=== PATIENT | female | born 1975 | race Caucasian/White ===

== ENCOUNTER 2023-06-25 16:05 | Emergency (ER) | payer BC, SELFPAY ==
--- NOTE | ~2023-06-25 | XR_ITS ---
EXAM: XR wrist RT 2V DATE: 06/25/2023 18:48 HISTORY: post reduction . COMPARISON: Same date at 4:32 PM. FINDINGS/IMPRESSION: Overlying cast material obscures osseous detail. Redemonstration of the comminuted, likely intra-reynold cular distal right radial fracture, with 4 mm posterior displacement, 23 degrees persistent posterior angulation, and decreased impaction. Improved alignment of the ulnar styloid fracture. Reviewed, dictated and finalized at location K. RACT ASSOCIATE
--- NOTE | ~2023-06-25 | XR_ITS ---
EXAM: XR wrist RT min 3V DATE: 06/25/2023 16:39 HISTORY: fall, injury, pain OBVIOUS DEFORMITY . COMPARISON: None available. FINDINGS: Normal mineralization. Comminuted, posteriorly angulated, mildly impacted fracture of the distal right radius, likely with intra-articular extension. Mildly comminuted and posteriorly displac ed fracture of the ulnar styloid No lytic or blastic lesion. Joint spaces are maintained. No erosion or periosteal change. Soft tissues within normal limits. IMPRESSION: Likely intra-articular, comminuted, angulated, and mildly impacted fracture of the distal right radius. Comminuted and displaced fracture of the ulnar styloid. Reviewed, dictated and finalized at location K. LITATION SPECIALIST IMPRESSION: Likely intra-articular, comminuted, angulated, and mildly impacted fracture of the distal right radius. Comminuted and displaced fracture of the u lnar styloid.
[2023-06-25 16:24] VITALS: BP 98/63; PULSE 54; RESP 16; TEMP 36.2; O2SAT 100
--- NOTE | 2023-06-25 16:49 | ED.UPPEXIN ---
HPI - Extremity Injury (Upper) General Chief Complaint: Extremity Injury, Upper <HERNANDEZ Page Last Filed: 06/28/23 01:54> Stated Complaint: fall - RIGHT wrist injury <HERNANDEZ Page Last Filed: 06/28/23 01:54> Time Seen by Provider: 06/25/23 16:24 <HERNANDEZ Page Last Filed: 06/28/23 01:54> History of Present Illness HPI narrative: 47-year-old female reports for evaluation for right wrist pain after a fall that occurred 30 minutes prior to arrival. Patient states she was rollerblading and was exiting the rink when her roller blade got caught on a rug. She fell back and landed on her tailbone and braced her fall with both of her hands extended behind her back. She is reporting pain to her right wrist with swelling. She denies hitting her head or losing consciousness. Denies neck pain, back pain, hip pain, other injuries acquired. <HERNANDEZ Page Last Filed: 06/28/23 01:54> Related Data Allergies/Adverse Reactions: Allergies Allergy/AdvReac Type Severity Reaction Status Date / Time No Known Allergies Unverified 06/25/09 06:37 <HERNANDEZ Page Last Filed: 06/28/23 01:54> Review of Systems Review of Systems: CONSTITUTIONAL: Denies fever, chills, or sweats. EYES: Denies visual changes, redness, or discharge. ENT: Denies rhinorrhea, congestion, sore throat, or otalgia. CARDIOVASCULAR: Denies chest pain, palpitations, or edema. RESPIRATORY: Denies cough or dyspnea. GASTROINTESTINAL: Denies abdominal pain, nausea, vomiting, or diarrhea. GENITOURINARY: Denies dysuria or hematuria. SKIN: Denies rash or itching. MUSCULOSKELETAL: See HPI NEUROLOGIC: Denies headache, numbness, or weakness. PSYCHIATRIC: Denies anxiety or depression. <HERNANDEZ Page Last Filed: 06/28/23 01:54> Exam Narrative: GENERAL: Well-appearing, well-nourished, and in no acute distress. HEAD: Normocephalic, atraumatic. NECK: Supple. no midline cervical spinous tenderness, step-offs or deformities. BACK: No thoracolumbar spinous tenderness, step-offs or deformities. CHEST: Clear to auscultation. No respiratory distress. HEART: Regular rate and rhythm. No murmur heard. Normal peripheral pulses. ABDOMEN: Soft, nontender, nondistended, normal active bowel sounds. EXTREMITIES: RUE: Tenderness and edema to the distal ulna and radius. Obvious dinner fork deformity. No tenderness to remainder of upper extremity including shoulder, elbow, proximal radius or ulna, fingers or hand. Full range of motion of fingers. Sensation intact throughout. Cap refill less than 2. Radial pulse 2 +. Skin is pink warm and dry. No overlying lacerations, abrasions or punctures. Compartments soft. SKIN: Warm, dry, no rash. NEURO: No focal deficits. Alert and oriented x3 <Tigist Abraham PA-C - Last Filed: 06/28/23 01:54> Course LOOSE HAND PACKER/PA Physician Supervision For this patient encounter, I reviewed the LOOSE HAND PACKER or PA documentation, treatment plan, and medical decision making; and I had [id number] time with this patient. <Tera Farmer MD - Last Filed: 07/09/23 07:28> Vital Signs Vital signs: Vital Signs Temperature 97.2 F L 06/25/23 16:24 Pulse Rate 54 L 06/25/23 16:24 Respiratory Rate 16 06/25/23 16:24 Blood Pressure 98/63 L 06/25/23 16:24 Pulse Oximetry 100 06/25/23 16:24 Temperature 97.2 F L 06/25/23 16:24 Pulse Rate 54 L 06/25/23 16:24 Respiratory Rate 16 06/25/23 16:24 Blood Pressure 98/63 L 06/25/23 16:24 Pulse Oximetry 100 06/25/23 16:24 <Tigist Abraham PA-C - Last Filed: 06/28/23 01:54> Vital Signs Temperature 97.2 F L 06/25/23 16:24 Pulse Rate 54 L 06/25/23 16:24 Respiratory Rate 16 06/25/23 16:24 Blood Pressure 98/63 L 06/25/23 16:24 Pulse Oximetry 100 06/25/23 16:24 Temperature 97.2 F L 06/25/23 16:24 Pulse Rate 54 L 06/25/23 16:24 Respiratory Rate 16 06/25/23 16:24 Bloo
[2023-06-25] MEDS: HYDROcodone/acetaminophen (*CRX) 5-325 MG TABLET 1 TAB PO (16:52)
[2023-06-25] MEDS: LIDOCAINE HCL 1% LOCAL INJ 10 ML VIAL INFILTRATE (19:17)
--- NOTE | 2023-06-25 19:48 | PC.NURSE ---
Pt left before receiving exit vitals.
== END 2023-06-25 19:50 | disposition home or self-care (01) ==
PROVIDERS: Emergency Provider Physician Assistant
DX: S52.571A Other intraarticular fracture of lower end of right radius, initial encounter for closed fracture (principal); S52.611A Displaced fracture of right ulna styloid process, initial encounter for closed fracture; W01.0XXA Fall on same level from slipping, tripping and stumbling without subsequent striking against object, initial encounter; Y93.51 Activity, roller skating (inline) and skateboarding
CPT/HCPCS: 25624; 73100; 73110; 99285; A4565; A9270

== ENCOUNTER 2024-08-07 16:08 | Outpatient (CLI) | payer OTHER, SELFPAY ==
--- NOTE | ~2024-08-07 | MR_ITS ---
EXAMINATION: MR lower leg RT wo con DATE: 08/07/2024 16:41 INDICATION: Medial right knee pain TECHNIQUE: Magnetic resonance imaging (MRI) of the right lower leg just from just above the right kne e through the metaphyseal region of the distal tibia was performed without intravenous contrast. Sequ ences included axial, sagittal and coronal T1-weighted FSE and fluid sensitive FSE STIR. The contrala teral left lower leg is included on the coronal images. COMPARISON: Radiographs dated 07/19/2024 FINDINGS: There is epimysial and feathery muscular edema about the right gastrocnemius muscle. There is increas ed fluid extending along the aponeurosis between the gastrocnemius muscle and the deeper soleus muscl e. No discrete tear muscular aponeurosis is appreciated. Remaining musculature is unremarkable. There is increased fluid signal and expansile lytic lesion at the head of the right fibula. On the prior r adiographs there is thinning of the surrounding cortex but no evident cortical disruption or perioste al reaction. No evident extraosseous extension of the lesion. Bone marrow signal is otherwise normal throughout with no reactive marrow edema or fracture. No periostitis. Minimal right knee joint effusi on. Small of the right Coliler's cyst. IMPRESSION: 1. Right gastrocnemius muscular and epimysial edema consistent with low-grade strain without a discre te tendon or muscle tear. 2. Fluid signal hyperintense expansile lytic lesion at the head of the right fibula with nonaggressiv e appearance on the prior radiographs which could represent a bone cyst, aneurysmal bone cyst, fibrou s dysplasia or enchondroma. Reviewed, dictated and finalized at location A. THERAPIST IMPRESSION: 1. Right gastrocnemius muscular and epimysial edema consistent with low-grade s train without a discrete tendon or muscle tear. 2. Fluid signal hyperintense expansile lytic lesion at the head of the right fi bula with nonaggressive appearance on the prior radiographs which could represe nt a bone cyst, aneurysmal bone cyst, fibrous dysplasia or enchondroma.
== END 2024-08-07 16:09 | disposition home or self-care (01) ==
LOC: MICIMG 16:10
PROVIDERS: PCP Orthopaedic Surgery; Visit Provider Orthopaedic Surgery
DX: R22.41 Localized swelling, mass and lump, right lower limb (principal); M89.561 Osteolysis, right lower leg
CPT/HCPCS: 73718

== ENCOUNTER 2024-11-20 09:26 | Outpatient (CLI) | payer OTHER, SELFPAY ==
--- NOTE | ~2024-11-20 | MR_ITS ---
MRI of the right knee Clinical history: Pain Technique: Coronal proton density and proton density-weighted images, sagittal proton-density and T2 fat-sat images, and axial proton-density fat-saturated images were acquired. COMPARISON: 08/07/2024 Findings: Anterior and posterior cruciate ligaments are intact. Medial collateral ligament and the la teral collateral ligament complex are intact. Popliteus tendon is intact. There is complex tearing of the body segment of the medial meniscus, which is largely macerated in ap pearance. Lateral meniscus is intact, without evidence of tear. Articular cartilage is well preserved in the lateral patellofemoral compartment. There is diffuse hig h-grade chondral malacia on both sides of the medial compartment. There is extensive amorphous marrow edema throughout the medial femoral condyle with probable subchondral insufficiency fracture present . There is a 2.9 x 2.3 cm T2 hyperintense lesion at the fibular head, similar to prior exam. Extensor mechanism is intact. Small joint effusion present. Minimal Collier's cyst is present. There is edematous change about involving the distal semimembranosus muscle belly, compatible with low-grade muscle strain or tear. Impression: Mild grade 2 muscle strain/tear of the distal semimembranosus muscle belly with surrounding soft tiss ue edema and fluid. Probable subchondral insufficiency fracture at the medial femoral condyle with extensive surrounding amorphous marrow edema. Complex tear of the body segment of the medial meniscus, which is largely macerated appearance. Extensive high-grade chondral malacia the medial compartment. 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 Reviewed, dictated and finalized at [facility]. Impression: Mild grade 2 muscle strain/tear of the distal semimembranosus muscle belly with surrounding soft tissue edema and fluid. Probable subchondral insufficiency fracture at the medial femoral condyle with extensive surrounding amorphous marrow edema. Complex tear of the body segment of the medial meniscus, which is largely macer ated appearance. Extensive high-grade chondral malacia the medial compartment. 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
== END 2024-11-20 09:27 | disposition home or self-care (01) ==
LOC: GOSHIMG 09:27
PROVIDERS: PCP Orthopaedic Surgery; Visit Provider Orthopaedic Surgery
DX: S83.241D Other tear of medial meniscus, current injury, right knee, subsequent encounter (principal); X58.XXXD Exposure to other specified factors, subsequent encounter
CPT/HCPCS: 73721

== ENCOUNTER 2024-12-04 01:24 | Day surgery (SDC) | payer OTHER, SELFPAY ==
[2024-11-28 12:11] VITALS: BMI 30.7
--- NOTE | 2024-11-28 12:12 | PC.NURSE ---
Report to the Outpatient Waiting Room, entrance under the green pavilion located off [facility], at time _1000_ on date _[id number]_. Planned Procedure Time: _1200_.? Time changes happen often and if your time is changed the preop area will call you the afternoon before. - You and your visitor will be asked to self-screen and do not enter if you have any COVID symptoms. Please call surgeon if you need to reschedule. - A mask is optional within the hospital at this time. Patients may have clear liquids (water, carbonated beverages, clear teas, apple juice) until 3 hours prior to surgery with a maximum of 20 ounces. - No food from midnight until time of surgery and no smoking, or chewing tobacco (or any form of nicotine). No chewing gum, candy or mints. Take only the following medications with a SIP of water on the morning of surgery: ___None____ DO NOT STOP ANY OF YOUR OTHER PRESCRIPTION MEDICATIONS PRIOR TO SURGERY EXCEPT THE FOLLOWING Hold all vitamins and supplements for 3 days per anesthesiologist. Medications to discontinue per physician Date to take last oufd__[id number]____ Please no make-up, nail bruneian, hairspray, perfume, deodorant, or body powder the day of surgery.? No jewelry (including any body piercings) or valuables the day of surgery, leave them at home.? Please take a shower or bath the night before, or the morning of, surgery with an antibacterial soap.? Wear comfortable, loose fitting clothing.? - Jewelry must be removed prior to entering the operating room.? Rings and piercings that are not removed may be cut off. - The hospital will not accept responsibility for valuables.? - Please leave all valuables, including medications, at home the day of surgery. If you are going home after surgery, a licensed dumpster driver must drive you home.? - NO public transportation without another adult if you receive anesthesia. - We recommend that an adult stay with you for 24 hours following discharge. - We also recommend that you do not drive, make important decision, drink alcoholic beverages, or take any drugs that were not prescribed by your health care provider for at least 24 hours after your discharge time. Follow any additional instructions given to you from your surgeon. Telephone instructions given to __April___and asked if any additional questions and then verbalized understanding. Patient advised to call surgeon office or pre surgery nurse liaison [phone] if any additional questions.
[2024-12-04] VITALS (8 sets, daily range): BP systolic 107–141; BP diastolic 66–98; PULSE 53–82; RESP 15–18; TEMP 36.4–37.1; O2SAT 98–100; BMI 32.1
[2024-12-04 10:14] LABS: BEDSIDEPREGUCG Negative (Negative)
[2024-12-04] MEDS: CELECOXIB 200 MG CAPSULE PO (10:25)
[2024-12-04] MEDS: ACETAMINOPHEN 500 MG TABLET 1000 MG PO (10:25)
[2024-12-04] MEDS: LACTATED RINGERS 1,000 ML 30 ML IV CONT ×2 (10:30→13:26)
--- NOTE | 2024-12-04 11:44 | WPDHPUPDATE1 ---
History and Physical Update Update Date/Time: 12/04/24 11:44 History and Physical has been reviewed, including an updated exam of the patient. There are NO changes in the patient's condition. Risks, benefits, and alternatives have been discussed and questions answered. Patient agrees to proceed with procedure.
--- NOTE | 2024-12-04 11:57 | P.PNAN_ITS ---
Anes - Initial Pre Proc Eval Procedure: Operation Date: 12/04/24 12:00 Proposed Procedures p Right Knee Arthroscopy - Cy Young MD Date/Time: 12/04/24 11:57 Surgeon: Cy Young MD Pre Op Diagnosis: right knee medial meniscus tear Patient Data Age: 49 Gender: F Height: 1.68 m Weight: 90.2 kg Last Vital Signs Temp 37.1 C 12/04/24 10:10 Pulse 61 12/04/24 10:10 Resp 16 12/04/24 10:10 BP 128/74 12/04/24 10:10 Pulse Ox 100 12/04/24 10:10 O2 Del Method Room Air 12/04/24 10:10 Allergies Allergy/AdvReac Type Severity Reaction Status Date / Time No Known Allergies Allergy Verified 12/04/24 10:08 Home Medications ?Medication ?Instructions ?Recorded ?Confirmed ?Type ibuprofen 200 mg tablet (Advil) 600 mg PO Q6H PRN pain 11/28/24 12/04/24 History multivitamin (Daily Multi-Vitamin 1 tablet PO DAILY 11/28/24 12/04/24 History tablet) Laboratory Tests 12/04/24 10:10 POC Urine HCG, Qual Negative (Negative) Patient hx anesthesia problems: none Family hx anesthesia problems: none Results Review: All pre-operative results and documents have been reviewed as part of the pre- operative evaluation. [facility] Past Medical History Medical History (Updated 12/04/24 @ 11:57 by Amado Olivares MD) Obesity Social History Social History Smoking status: Never smoker Alcohol intake: current Drinks per week: 6 Substance use type: does not use Living arrangements: with family Occupation/Education: occupation Additional occupation/education comments: [employer] Gender identity (if verbalized by the patient): Female Spiritual care concerns: No Anes - Eval Final PreProcedure Day of Procedure 12/04/24 11:57 Patient weight: obese Heart: regular rate and rhythm Lungs: clear to auscultation Airway: Mallampati scale class II Neurological: alert and oriented Last oral intake: >/= 8 hours Emergent: no Anesthetic plan: proceed Anesthesia type and monitoring: general LMA and standard monitoring Results Review: All pre-operative results and documents have been reviewed as part of the pre- operative evaluation. Informed Consent: The patient's anesthetic plan and its attendant risks and benefits were discuss ed with the patient/family/POA. Questions were solicited and answers provided to the satisfaction of the patient/family/POA.
[2024-12-04] MEDS: ceFAZolin 2 GM/D5W 50 ML 2 GM/50 ML BAG IVPB (12:24)
[2024-12-04] MEDS: BUPivacaine HCL 0.5% 10 ML AMP 30 ML INFILTRATE (12:51)
--- NOTE | 2024-12-04 13:33 | P.OP_ITS ---
Procedure Note - Detailed Date of Procedure 12/04/24 Pre-op Diagnosis right knee medial meniscus tear Post-op Diagnosis Same Procedure Performed RIGHT KNEE SCOPE Surgeon Cy Young MD Anesthesia General Description of Procedure PATIENT WAS TAKEN TO THE OPERATING ROOM. THE RIGHT LEG WAS PREPPED AND DRAPED S TERILE. TROCARS WERE PLACED IN THE USUAL FASHION. CAMERA WAS INTRODUCED. THERE WAS CHONDROMALACIA TO THE PATELLA FEMORAL JOINT. THERE WAS A LOT OF SYNOVITIS IN ALL COMPARTMENTS. SYNOVECTOMY WAS PREFORMED IN THE MEDIAL COMPARTMENT. THE MEDIAL COMPARTMENT SHOWED GRADE 2 AND 3 CHONDROMALACIA TO THE MEDIAL FEMORAL CONDYLE. A SHAVER WAS USED TO PREFORM A CHONDROPLASTY. THERE WAS A COMPLEX MEDIAL MENISCUS TEAR TO THE POSTERIOR HORN. THE TEAR WAS RESECTED WITH A BITER AND A SHAVER DOWN TO A SMOOTH BASE. THE ACL WAS INTACT. THE LATERAL MENISCUS WAS NOT TORN. THE LATERAL COMPARTMENT HAD MINIMAL CHONDROMALACIA. THERE WAS GRADE 3 CHONDROMALACIA TO THE PATELLO FEMORAL JOINT MAINLY ON THE PATELLA SURFACE. CHONDROPLASTY WAS PREFORMED. SYNOVECTOMY WAS PREFORMED IN THE SUPERIOR MEDIAL COMPARTMENT. THE WOUNDS WERE APPROXIMATED WITH 4.0 NYLON. STERILE DRESSING WAS APPLIED. PATIENT WAS EXTUBATED. Estimated Blood Loss 5 Complications No immediate complications Condition Stable Disposition PACU
[2024-12-04] MEDS: oxyCODONE HCL (*CRX) 5 MG TAB IR PO (14:28)
== END 2024-12-04 15:20 | disposition home or self-care (01) ==
PROVIDERS: Visit Provider Orthopaedic Surgery
PROC: (CPT 29870; principal; 2024-12-04 12:00)
DX: S83.231A Complex tear of medial meniscus, current injury, right knee, initial encounter (principal); M65.861 Other synovitis and tenosynovitis, right lower leg; M22.41 Chondromalacia patellae, right knee; X50.0XXA Overexertion from strenuous movement or load, initial encounter; E66.9 Obesity, unspecified; Z68.32 Body mass index [BMI] 32.0-32.9, adult
CPT/HCPCS: 29881; A9270; J0690; J1100; J2250; J2405; J2704; J3010; J7120

== ENCOUNTER 2024-12-07 01:38 | Day surgery (SDC) | payer OTHER, SELFPAY ==
[2024-11-27 15:39] VITALS: BMI 32.0
--- NOTE | 2024-12-07 07:47 | SUR.PREOP ---
Spoke with Dr. Sosa regarding patient screen. Patient was unable to void at this time. Per patient, she was just here on Monday 12/04 for procedure and it was negative then. Per Dr. Sosa, ok to cancel screen for today and use negative value from 12/04.
[2024-12-07 07:57] VITALS: BP 148/94; PULSE 82; RESP 18; TEMP 36.6; O2SAT 100; BMI 31.8
[2024-12-07] MEDS: LACTATED RINGERS 1,000 ML 150 ML IV CONT (08:00)
--- NOTE | 2024-12-07 08:03 | WPDANESEPPF ---
Anes - Initial Pre Proc Eval Procedure: Operation Date: 12/07/24 08:30 Proposed Procedures p Screening Colonoscopy - Jamey Dash MD Date/Time: 12/07/24 08:03 Surgeon: Jamey Dash MD Pre Op Diagnosis: Screening Patient Data Age: 49 Gender: F Height: 1.68 m Weight: 89.7 kg Last Vital Signs Temp 36.6 C 12/07/24 07:57 Pulse 82 12/07/24 07:57 Resp 18 12/07/24 07:57 BP 148/94 H 12/07/24 07:57 Pulse Ox 100 12/07/24 07:57 O2 Del Method Room Air 12/07/24 07:57 Allergies Allergy/AdvReac Type Severity Reaction Status Date / Time No Known Allergies Allergy Verified 12/07/24 07:54 Home Medications ?Medication ?Instructions ?Recorded ?Confirmed ?Type multivitamin (Daily Multi-Vitamin 1 tablet PO DAILY 11/28/24 12/05/24 History tablet) hydrocodone 5 mg-acetaminophen 325 1 tablet PO Q8H PRN 12/05/24 12/05/24 History mg tablet Patient hx anesthesia problems: none Family hx anesthesia problems: none Results Review: All pre-operative results and documents have been reviewed as part of the pre-operative evaluation. [facility] Past Medical History Medical History Encounter for IUD insertion 4 years - kyleena Obesity Surgical History Surgical History H/O knee surgery 12/04/2024 H/O wrist surgery Family History Family History Father Hypertension Diabetes mellitus Mother Thyroid disorder Grandparent Ovarian cancer Social History Social History Smoking status: Never smoker Alcohol intake: current Drinks per week: 6 Alcohol use details: socially Substance use: never Substance use type: does not use Do You Feel Safe in your Home?: Yes Lack of Transportation: No Lack of Food: Never True Current Housing: I Have Housing Concerned About Future Housing: No Difficulty Paying Gas/Electric Bills: No Difficulty Paying for Meds: No Currently Unemployed: No Education: Bachelor's Degree Difficulty w/ Childcare or Family Care: No Living arrangements: with family Additional living arrangements comments: single Occupation/Education: occupation 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 Gender identity (if verbalized by the patient): Female Sexual Orientation (if Verbalized by the Patient): Straight or Heterosexual Spiritual care concerns: No Anes - Eval Final PreProcedure Day of Procedure 12/07/24 08:03 Patient weight: overweight Heart: regular rate and rhythm Lungs: clear to auscultation Airway: Mallampati scale class 1 Neurological: alert and oriented Last oral intake: >/= 8 hours ASA classification: II Emergent: no Anesthetic plan: proceed Anesthesia type and monitoring: general GIVS and standard monitoring Results Review: All pre-operative results and documents have been reviewed as part of the pre-operative evaluation. Informed Consent: The patient's anesthetic plan and its attendant risks and benefits were discussed with the patient/family/POA. Questions were solicited and answers provided to the satisfaction of the patient/family/POA.
--- NOTE | 2024-12-07 08:38 | P.HP_ITS ---
History of Present Illness History of Present Illness Consent: Risks, benefits, and alternatives have been discussed and questions answered. Patient agrees to proceed with procedure. Chief complaint: Screening Narrative: April Freeman is a 49 year old female here for screening colonoscopy. Review of Systems Review of Systems: All systems reviewed & are unremarkable except as noted in HPI and below PMFSH Past Medical History Medical History (Updated 12/07/24 @ 08:38 by Jamey Dash MD) Colon cancer screening Encounter for IUD insertion 4 years - kyleena Obesity Surgical History Surgical History H/O knee surgery 12/04/2024 H/O wrist surgery Family History Family History Father Hypertension Diabetes mellitus Mother Thyroid disorder Grandparent Ovarian cancer Social History Social History Smoking status: Never smoker Alcohol intake: current Drinks per week: 6 Alcohol use details: socially Substance use: never Substance use type: does not use Do You Feel Safe in your Home?: Yes Lack of Transportation: No Lack of Food: Never True Current Housing: I Have Housing Concerned About Future Housing: No Difficulty Paying Gas/Electric Bills: No Difficulty Paying for Meds: No Currently Unemployed: No Education: Bachelor's Degree Difficulty w/ Childcare or Family Care: No Living arrangements: with family Additional living arrangements comments: single Occupation/Education: occupation 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 Gender identity (if verbalized by the patient): Female Sexual Orientation (if Verbalized by the Patient): Straight or Heterosexual Spiritual care concerns: No Meds Home Medications and Allergies Home Medications ?Medication ?Instructions ?Recorded ?Confirmed ?Type multivitamin (Daily Multi-Vitamin 1 tablet PO DAILY 11/28/24 12/05/24 History tablet) hydrocodone 5 mg-acetaminophen 325 1 tablet PO Q8H PRN 12/05/24 12/05/24 History mg tablet Allergies Allergy/AdvReac Type Severity Reaction Status Date / Time No Known Allergies Allergy Verified 12/07/24 07:54 Vital Signs Vital Signs - 24 hr 12/07/24 07:57 Temperature 98 F Pulse Rate 82 Respiratory Rate 18 Blood Pressure 148/94 H Pulse Oximetry 100 Oxygen Delivery Room Air Exam Const: General: comfortable and no acute distress HENMT: Face/Nose/Sinus: Normal nares present Eyes: General: appearance normal, both eyes and all related structures Neck: Neck: no JVD Resp: Auscultation: clear to auscultation bilaterally Cardio: Rate: regular rate Rhythm: regular rhythm GI: Inspection: non-distended GI Palp: Yes Soft to palpation Skin: General skin exam: normal color Neuro: General: gait normal Speech: normal speech Extrem: General: normal to inspection Psych: Mental Status: mental status grossly normal Assessment and Plan Assessment and plan (1) Colon cancer screening: Code(s): Z12.11 - Encounter for screening for malignant neoplasm of colon Status: Acute Assessment and Plan: colonoscopy
[2024-12-07 09:04] VITALS: BP 85/48; PULSE 66; RESP 21; O2SAT 100
--- NOTE | 2024-12-07 09:04 | S_PTH ---
PATIENT: April Freeman LOC: [facility]#:[id number] AGE/SX: 49/F ROOM: RE12/07/[address]: Jamey Dash MD : 1975 BED: DIS: 12/07/2024 SPEC #: [id number] RECD: 12/07/24 10:56 STATUS: RK REKurt #: [id number] ISABEL: 12/07/24 09:[address]: Jamey Dash DEPT: [facility] Surgical RECD BY: Jalyn Yeung Tissues: A - Colon Polypectomy Procedures: Hematoxylin and Eosin Stain Gross and Microscopic Level 4
[2024-12-07 09:14] VITALS: BP 105/77; PULSE 62; RESP 17; O2SAT 100
[2024-12-07 09:24] VITALS: BP 107/64; PULSE 60; RESP 16; O2SAT 100
== END 2024-12-07 10:05 | disposition home or self-care (01) ==
PROVIDERS: Visit Provider Internal Medicine Gastroenterology
PROC: 0DJD8ZZ Inspection of Lower Intestinal Tract, Via Natural or Artificial Opening Endoscopic (ICD-10-PCS; CPT 45378; principal; 2024-12-07 08:30)
DX: Z12.11 Encounter for screening for malignant neoplasm of colon (principal); K63.5 Polyp of colon; K64.8 Other hemorrhoids; Z79.891 Long term (current) use of opiate analgesic; Z98.890 Other specified postprocedural states; Z80.41 Family history of malignant neoplasm of ovary
CPT/HCPCS: 45385; 88305; J2003; J2704; J7120

== ENCOUNTER 2025-01-03 13:46 | Outpatient (CLI) | payer OTHER, SELFPAY ==
--- NOTE | ~2025-01-03 | MM_ITS ---
EXAMINATION: MM screening [facility] w [facility] HISTORY: Screening mammogram TECHNIQUE: Craniocaudal and mediolateral oblique 3-D tomosynthesis images were obtained and synthetic 2-D images were generated. CAD analysis was submitted and interpreted. COMPARISON: No prior mammogram is available for comparison at this institution. BREAST PARENCHYMAL COMPOSITION:Dense: The breasts are heterogeneously dense, which may obscure small masses. FINDINGS: No suspicious mass, calcification, or architectural distortion are identified in either jenifer ast to suggest malignancy. There has been no suspicious interval change. IMPRESSION: No mammographic evidence of malignancy. Recommend routine screening mammography in one year. BI-RADS Category 1: Negative Reviewed, dictated and finalized at location .
== END 2025-01-03 13:47 | disposition home or self-care (01) ==
LOC: MICIMG 13:46
DX: Z12.31 Encounter for screening mammogram for malignant neoplasm of breast (principal)
CPT/HCPCS: 77063; 77067